=== PATIENT | male | born 1995 | race Caucasian/White ===

== ENCOUNTER 2017-03-14 10:23 | Emergency (ER) | payer BC ==
[2017-03-14 10:49] VITALS: BP 143/74
--- NOTE | 2017-03-14 12:05 | UC ---
Complaint Male HPI - HPI Summary HPI Summary: Pt recently had unprotected sex & has noticed a small amount of penile discharge since. New partner 2 nights ago and discharge started yesterday and still present . Mild discomfort with urination. No penile lesions. [ End ] - History of Current Complaint Chief Complaint: UCGU Stated Complaint: PERSONAL Time Seen by Provider: 03/14/17 11:56 Hx Obtained From: Patient Onset/Duration: Sudden Onset Timing: Constant Severity Initially: Moderate Severity Currently: Moderate Location: Penis - Risk Factors Testicular Torsion: Negative - Allergies/Home Medications Allergies/Adverse Reactions: Allergies Allergy/AdvReac Type Severity Reaction Status Date / Time No Known Allergies Allergy Verified 03/14/17 10:42 PMH/Surg Hx/FS Hx/Imm Hx Previously Healthy: Yes Endocrine History Of: Denies: Diabetes Cardiovascular History Of: Denies: Hypertension - Surgical History Surgical History: None - Family History Known Family History: Positive: Hypertension - Social History Occupation: Student Lives: With Family Alcohol Use: None Substance Use Type: None Smoking Status (MU): Never Smoked Tobacco Review of Systems Constitutional: Negative Skin: Negative Eyes: Negative ENT: Negative Respiratory: Negative Cardiovascular: Negative Gastrointestinal: Negative Genitourinary: Dysuria Motor: Negative Neurovascular: Negative Musculoskeletal: Negative Neurological: Negative Psychological: Negative All Other Systems Reviewed And Are Negative: Yes Physical Exam Triage Information Reviewed: Yes Appearance: Well-Appearing, No Pain Distress, Well-Nourished Vital Signs: Initial Vital Signs Temp 98.4 F 03/14/17 10:42 Pulse 89 03/14/17 10:42 Resp 16 03/14/17 10:42 BP 143/74 03/14/17 10:42 Pulse Ox 100 03/14/17 10:42 Eye Exam: Normal ENT Exam: Normal Neck: Positive: 1 Respiratory Exam: Normal Cardiovascular Exam: Normal Musculoskeletal Exam: Normal Neurological Exam: Normal Psychological Exam: Normal Skin Exam: Normal Skin: Positive: Other - clear odorous discharge tip of penis/urethra. no lesions Complaint Male Course/Dx - Course Course Of Treatment: Treat empiracally. Discussed safe sex practices and encouraged. Advised to get testing for STD/HIV today and declined today. Advised to have testing with PCP and also discussed getting HPV vaccines. He will f/u with PCP for additional testing. - Differential Dx/Diagnosis Provider Diagnoses: Urethritis Discharge - Discharge Plan Condition: Good Disposition: HOME Patient Education Materials: Nonspecific Urethritis in Men (ED) Referrals: No Primary Care Phys,NOPCP [Primary Care Provider] - 3 Days
[2017-03-14] MEDS ORDERED: Azithromycin TAB* 250 MG PO ONE (12:14)
[2017-03-14] MEDS ORDERED: cefTRIAXone VIAL(*) 250 MG VIAL IM ONE (12:14)
[2017-03-14] MEDS ORDERED: Lidocaine 1% MPF* 2 ML VIAL ONE (12:44)
== END 2017-03-14 13:02 | disposition home or self-care (01) ==
LOC: UCCORT 10:23
DX: N34.2 Other urethritis (principal)
CPT/HCPCS: 87491; 87591; 96372; 99212; A9270-GY; G0463; J0696

== ENCOUNTER 2017-05-12 18:42 | Emergency (ER) | payer BC ==
[2017-05-12 19:07] VITALS: BP 126/87
--- NOTE | 2017-05-12 19:28 | UC ---
Throat Pain/Nasal Franky HPI - History of Current Complaint Chief Complaint: UCRespiratory Stated Complaint: SINUSES Time Seen by Provider: 05/12/17 19:27 - Allergies/Home Medications Allergies/Adverse Reactions: Allergies Allergy/AdvReac Type Severity Reaction Status Date / Time seasonal Allergy Sneezing Uncoded 05/12/17 19:06 PMH/Surg Hx/FS Hx/Imm Hx - Surgical History Surgical History: None - Family History Known Family History: Positive: Hypertension - Social History Alcohol Use: None Substance Use Type: None Smoking Status (MU): Never Smoked Tobacco Physical Exam Vital Signs: Initial Vital Signs Temp 36.8 C 05/12/17 19:02 Pulse 72 05/12/17 19:02 Resp 16 05/12/17 19:02 BP 126/87 05/12/17 19:02 Pulse Ox 98 05/12/17 19:02 Discharge - Discharge Plan Condition: Stable Disposition: HOME Patient Education Materials: Sinusitis (ED)
--- NOTE | 2017-05-12 19:40 | UC ---
Ear Complaint HPI - HPI Summary HPI Summary: pt presents c/o right ear pain that radiates to right side of jaw and teeth X 1 week. - History of Current Complaint Chief Complaint: UCRespiratory Stated Complaint: SINUSES Time Seen by Provider: 05/12/17 19:27 Hx Obtained From: Patient Onset/Duration: Gradual Onset, Lasting Weeks - 1 Severity Initially: Mild Severity Currently: Mild Associated Signs/Symptoms: Positive: Hearing Loss Related History: Seasonal Allergies - Allergies/Home Medications Allergies/Adverse Reactions: Allergies Allergy/AdvReac Type Severity Reaction Status Date / Time seasonal Allergy Sneezing Uncoded 05/12/17 19:06 PMH/Surg Hx/FS Hx/Imm Hx Previously Healthy: Yes - Surgical History Surgical History: None - Family History Known Family History: Positive: Hypertension - Social History Alcohol Use: None Substance Use Type: None Smoking Status (MU): Never Smoked Tobacco Review of Systems Constitutional: Negative Skin: Negative Eyes: Negative ENT: Ear Ache, Sinus Pain/Tenderness Respiratory: Negative Cardiovascular: Negative Gastrointestinal: Negative Genitourinary: Negative Motor: Negative Neurovascular: Negative Musculoskeletal: Negative Neurological: Negative Psychological: Negative All Other Systems Reviewed And Are Negative: Yes Physical Exam Triage Information Reviewed: Yes Appearance: Well-Appearing Vital Signs: Initial Vital Signs Temp 98.3 F 05/12/17 19:02 Pulse 72 05/12/17 19:02 Resp 16 05/12/17 19:02 BP 126/87 05/12/17 19:02 Pulse Ox 98 05/12/17 19:02 Vital Signs Reviewed: Yes Eye Exam: Normal ENT Exam: Other ENT: Positive: TM red, Other: - cerumen impaction right ear canal, Neck exam: Normal Respiratory Exam: Normal Cardiovascular Exam: Normal Musculoskeletal Exam: Normal Neurological Exam: Normal Psychological Exam: Normal Skin Exam: Normal Ear Complaint Course/Dx - Differential Dx/Diagnosis Differential Diagnosis/HQI/PQRI: Cerumen Impaction, Otitis Media Provider Diagnoses: otitis media right ear. cerumen impaction right ear canal Discharge - Discharge Plan Condition: Stable Disposition: HOME Patient Education Materials: Sinusitis (ED) Referrals: No Primary Care Phys,NOPCP [Primary Care Provider] -
[2017-05-12] MEDS ORDERED: Amoxicillin CAP* 500 MG PO ONE (19:55)
== END 2017-05-12 20:00 | disposition home or self-care (01) ==
LOC: UCCORT 18:42
DX: H66.91 Otitis media, unspecified, right ear (principal); H61.21 Impacted cerumen, right ear
CPT/HCPCS: 99212; A9270-GY; G0463

== ENCOUNTER 2018-02-17 16:41 | Emergency (ER) | payer BC ==
[2018-02-17 18:46] VITALS: BP 136/75
[2018-02-17] MEDS ORDERED: Ibuprofen TAB* 600 MG PO ONE (18:49)
--- NOTE | 2018-02-17 19:42 | RAD ---
Indication: Pain plantar aspect LEFT foot and under lateral malleolus for 3 days without known injury. Comparison: No relevant prior exams available on the [facility] PACS for comparison. Technique: AP, lateral, and oblique views LEFT foot. AP and lateral views LEFT lower leg. Report: Normal articular alignment at the lower leg and foot. Negative for fracture, findings of stress reaction, focal osseous lesion, or abnormal soft tissue contour. Os trigonum accessory ossicle. Small smooth margined accessory ossicle inferior to the lateral malleolus. No conspicuous foreign body or subcutaneous emphysema evident. IMPRESSION: Negative radiographic exam of the LEFT lower leg and foot.
--- NOTE | 2018-02-17 19:42 | RAD ---
Indication: Pain plantar aspect LEFT foot and under lateral malleolus for 3 days without known injury. Comparison: No relevant prior exams available on the [facility] PACS for comparison. Technique: AP, lateral, and oblique views LEFT foot. AP and lateral views LEFT lower leg. Report: Normal articular alignment at the lower leg and foot. Negative for fracture, findings of stress reaction, focal osseous lesion, or abnormal soft tissue contour. Os trigonum accessory ossicle. Small smooth margined accessory ossicle inferior to the lateral malleolus. No conspicuous foreign body or subcutaneous emphysema evident. IMPRESSION: Negative radiographic exam of the LEFT lower leg and foot.
--- NOTE | 2018-02-17 19:49 | UC ---
Lower Extremity/Ankle HPI - HPI Summary HPI Summary: Patient had this afternoon after awaking with left foot pain and pain with palpation left fibula. Patient has had no known injury but the night prior he exercised a lot in the gym. Patient does work in a warehouse doing stocking during the day - History of Current Complaint Chief Complaint: UCLowerExtremity Stated Complaint: LEFT ANKLE COMP Time Seen by Provider: 02/17/18 18:32 Hx Obtained From: Patient Onset/Duration: Sudden Onset, Lasting Days - 2 Severity Initially: Moderate Severity Currently: Moderate Pain Intensity: 5 Pain Scale Used: 0-10 Numeric Aggravating Factor(s): Standing, Ambulation Able to Bear Weight: Yes - Allergies/Home Medications Allergies/Adverse Reactions: Allergies Allergy/AdvReac Type Severity Reaction Status Date / Time seasonal Allergy Sneezing Uncoded 02/17/18 18:46 Home Medications: Home Medications Ibs Med 1 tab PO DAILY 02/17/18 [History Confirmed 02/17/18] PMH/Surg Hx/FS Hx/Imm Hx GI/ History: Other Other GI/ History: IBS - Surgical History Surgical History: None - Family History Known Family History: Positive: Hypertension - Social History Occupation: Employed Full-time Lives: With Family - IBS Alcohol Use: None Substance Use Type: None Smoking Status (MU): Never Smoked Tobacco Review of Systems Constitutional: Negative Skin: Negative Eyes: Negative ENT: Negative Respiratory: Negative Cardiovascular: Negative Gastrointestinal: Negative Genitourinary: Negative Motor: Negative Neurovascular: Negative Musculoskeletal: Arthralgia - Left foot and left fibula pain Neurological: Negative Psychological: Negative Is Patient Immunocompromised?: No All Other Systems Reviewed And Are Negative: Yes Physical Exam Triage Information Reviewed: Yes Appearance: Well-Appearing, No Pain Distress, Well-Nourished Vital Signs: Initial Vital Signs Temp 99.2 F 02/17/18 18:40 Pulse 71 02/17/18 18:40 Resp 18 02/17/18 18:40 BP 136/75 02/17/18 18:40 Pulse Ox 99 02/17/18 18:40 Vital Signs Reviewed: Yes Eye Exam: Normal Eyes: Positive: Conjunctiva Clear ENT Exam: Normal ENT: Positive: Normal ENT inspection, Hearing grossly normal. Negative: Trismus , Muffled voice, Hoarse voice Dental Exam: Normal Neck exam: Normal Neck: Positive: Supple, Nontender Respiratory Exam: Normal Respiratory: Positive: No respiratory distress, No accessory muscle use Cardiovascular Exam: Normal Cardiovascular: Positive: RRR, Pulses Normal, Brisk Capillary Refill Musculoskeletal Exam: Normal Musculoskeletal: Positive: Strength Intact, ROM Intact, No Edema Neurological Exam: Normal Neurological: Positive: Alert, Muscle Tone Normal Psychological Exam: Normal Psychological: Positive: Normal Response To Family, Age Appropriate Behavior Skin Exam: Normal Diagnostics - Radiology No standard instances Xray Interpretation: No Acute Changes Radiology Interpretation Completed By: ED Physician, Radiologist Lower Extremity Course/Dx - Course Course Of Treatment: [place]idan ibuprofen rest ice and elevation follow with PCP off work tomorrow February 18, 2018 - Differential Dx/Diagnosis Provider Diagnoses: left foot pain Discharge - Sign-Out/Discharge Documenting (check all that apply): Discharge - Discharge Plan Condition: Stable Disposition: HOME Prescriptions: Ibuprofen TAB* [Motrin TAB* 600 MG] 600 mg PO Q6H PRN #30 tab PRN Reason: pain Patient Education Materials: Arthralgia (ED), R.I.C.E. Treatment (ED) Forms: *Work Release Referrals: Eliu Nielson MD [Primary Care Provider] - If Needed - Billing Disposition and Condition Condition: STABLE Disposition: HOME
== END 2018-02-17 20:07 | disposition home or self-care (01) ==
LOC: UCCORT 16:41
DX: M79.672 Pain in left foot (principal)
CPT/HCPCS: 99213; A9270-GY; G0463